=== PATIENT | male | born 1980 ===

== ENCOUNTER 2016-09-15 16:49 | Emergency (ER) | payer OTHER ==
[2016-09-15 16:56] VITALS: BP 115/71; PULSE 70; RESP 18; TEMP 97.7; O2SAT 100
--- NOTE | 2016-09-15 17:06 | ED PDOC ---
Lower Extremity Pain/Injury Time Seen by Provider: 09/15/16 16:58 Chief Complaint (Nursing): Lower Extremity Problem/Injury Chief Complaint (Provider): foot pain History Per: Patient, Manager Pulmonary (Malinda Nguyễn RN, Certified Cemetery Manager at bedside) Additional Complaint(s): 36-year-old male with no past medical history presents to emergency Department with pain to right great toe status post injury one week ago. Patient did not seek medical attention at time of injury and presents today with persistent pain. He states that the pain is relieved by ibuprofen. He denies any numbness or tingling to the affected area. He has not taken anything for pain in 4 days. Past Medical History Reviewed: Historical Data, Nursing Documentation, Vital Signs Vital Signs: Last Vital Signs Temp 97.7 F 09/15/16 16:54 Pulse 70 09/15/16 16:54 Resp 18 09/15/16 16:54 BP 115/71 09/15/16 16:54 Pulse Ox 100 09/15/16 16:54 - Medical History PMH: No Chronic Diseases - Surgical History Surgical History: Hernia Repair - Family History Family History: States: No Known Family Hx - Living Arrangements Living Arrangements: With Family - Social History Current smoker - smoking cessation education provided: No Alcohol: None Drugs: Denies - Home Medications Home Medications: Ambulatory Orders Medication Instructions Recorded Ibuprofen [Motrin] 600 mg PO Q6 PRN #15 tab 09/15/16 - Allergies Allergies/Adverse Reactions: Allergies Allergy/AdvReac Type Severity Reaction Status Date / Time No Known Allergies Allergy Verified 09/15/16 16:53 Wells Criteria for PE - Wells Criteria for Pulmonary Embolism Clinical Signs and Symptoms of DVT: No P.E is #1 Diagnosis, or Equally Likely: No Heart Rate >100: No Immobilization at least 3 days;Surgery previous 4 weeks: No Previous, objectively diagnosed PE or DVT: No Hemoptysis: No Malignancy w/treatment within 6 months, or palliative: No Total Score: 0 Review of Systems ROS Statement: Except As Marked, All Systems Reviewed And Found Negative Musculoskeletal: Positive for: Foot Pain (right foot injury sustained last week) Physical Exam - Reviewed Nursing Documentation Reviewed: Yes Vital Signs Reviewed: Yes - Physical Exam Appears: Positive for: Well, Non-toxic, No Acute Distress Skin: Negative for: Rash Eye Exam: Positive for: Normal appearance Extremity: Positive for: Other (tenderness to plantar aspect of right great toe with full rom, toenail is intact, no ecchymosis or infection) Neurologic/Psych: Positive for: Alert, Oriented, Gait (steady) - ECG O2 Sat by Pulse Oximetry: 100 Pulse Ox Interpretation: Normal - Other Rad Right foot X-ray X-Ray: Interpreted by Me, Viewed By Me X-Ray Interpretation: no fx, no dis Medical Decision Making Medical Decision Makin36 year old with right foot injury Plan: X-ray right foot Pain meds declined by patient X-ray negative for fracture dislocation. Right first and second toes were nikolas taped, orthopedic shoe applied to right foot, neurovascular intact status post placement. Patient given prescription for Motrin and referral to podiatry clinic. Disposition - Clinical Impression Clinical Impression: Toe sprain, Toe contusion - Patient ED Disposition Is Patient to be Admitted: No Counseled Patient/Family Regarding: Studies Performed, Diagnosis, Need For Followup, Rx Given - Disposition Referrals: Podiatry Clinic [Outside] Disposition: Routine/Home Disposition Time: 18:46 Condition: STABLE Additional Instructions: Ice, rest and elevate affected area. Take prescription meds as directed as needed for pain. Follow-up with podiatry clinic in 2-3 days. Prescriptions: Ibuprofen [Motrin] 600 mg PO Q6 PRN #15 tab PRN Reason: Pain, Moderate (4-7) Instructions: Foot Sprain (ED), Foot Contusion (ED) Print Language: [place]
--- NOTE | 2016-09-15 18:15 | RAD ---
PROCEDURE: Right Foot Radiographs. HISTORY: Trauma COMPARISON: None. FINDINGS: BONES: There is periarticular bone demineralization. There is no acute fracture or bone destruction. Bone alignment is normal. . JOINTS: The joint spaces are preserved. SOFT TISSUES: Normal. OTHER FINDINGS: None. IMPRESSION: No acute fracture or dislocation.
== END 2016-09-15 18:51 | disposition home or self-care (01) ==
LOC: H.ER 16:49
DX: S93.509A Unspecified sprain of unspecified toe(s), initial encounter (principal); S90.121A Contusion of right lesser toe(s) without damage to nail, initial encounter; X58.XXXA Exposure to other specified factors, initial encounter